=== PATIENT | female | born 1940 | race Caucasian/White ===

== ENCOUNTER 2020-12-12 08:45 | Emergency (ER) | payer MEDICARE ==
[~2020-12-12] VITALS: Ht 165.1 cm; Wt 77.1 kg
[~2020-12-12 08:45] MED LIST: AMLODIPINE BESY10 MG PO; ATORVASTATIN CA20 MG PO; Aspirin PO; DIOVAN160 MG PO; FENOFIBRATE145 MG PO; HYDROCHLOROTHIA25 MG PO; ISOSORBIDE MONO30 MG PO; LOPRESSOR25 MG PO; NITROSTAT0.3 MG SL
[2020-12-12 10:22] LABS: BACTERIA,URINE MODERATE /HPF; CLARITY,URINE HAZY (CLEAR); COLOR,URINE YELLOW (YELLOW); EPITHELIAL CELLS,URINE FEW /LPF; KETONES,URINE NEGATIVE (NEGATIVE); LEUKOCYTE ESTERASE ,URINE SMALL (NEGATIVE); NITRITE,URINE NEGATIVE (NEGATIVE); PROTEIN,URINE DIPSTICK >=300 (NEGATIVE); URINE UROBILINOGEN 0.2 mg/dL (0.2 - 1); WBC,URINE (MAN) >50 /HPF (0-5)
[2020-12-12 11:36] VITALS: BP 190/64
== END 2020-12-12 11:06 | disposition home or self-care (01) ==
LOC: ER 09:26
DX: R30.0 Dysuria (principal); N39.0 Urinary tract infection, site not specified; I10 Essential (primary) hypertension; E78.5 Hyperlipidemia, unspecified
CPT/HCPCS: 81001; 87086; 87186; 99283

== ENCOUNTER 2024-06-01 22:36 | Emergency (ER) | payer MEDICARE ==
[~2024-06-01] VITALS: Ht 165.1 cm; Wt 77.1 kg
[2024-06-01 23:04] VITALS: PULSE 61; RESP 18; TEMP 97.9
[2024-06-01 23:36] LABS: BASOPHILS # (AUTO) 0.1 (0.0-0.1); BASOPHILS % 0.8 % (0.0-1.0); EOSINOPHILS # (AUTO) 0.4 (0.0-0.4); HEMATOCRIT 40.3 % (34.2-44.1); HEMOGLOBIN 12.6 g/dL (12.0-16.0); LYMPHOCYTES # (AUTO) 2.1 (1.0-3.2); LYMPHOCYTES % 21.1 % (18.0-39.1); MEAN CORPUSCULAR HEMOGLOBIN 29.9 pg (28-32); MEAN CORPUSCULAR HGB CONC 31.3 g/dL (31-35); MEAN CORPUSCULAR VOLUME 95.5 fL (81-99); MONOCYTES # (AUTO) 0.9 (0.2-0.8); MONOCYTES % 8.9 % (4.4-11.3); NEUTROPHILS # (AUTO) 6.3 (2.1-6.9); NEUTROPHILS % 64.6 % (38.7-80.0); PLATELET COUNT 296 x10e3/uL (140-360); RED BLOOD COUNT 4.22 x10e6/uL (3.6-5.1); RED CELL DISTRIBUTION WIDTH 13.9 % (11.7-14.4)
[2024-06-01 23:56] LABS: ALANINE AMINOTRANSFERASE 15 IU/L (0-55); ALBUMIN 3.8 g/dL (3.5-5.0); ALBUMIN/GLOBULIN RATIO 1.2 (0.8-2.0); ALKALINE PHOSPHATASE 45 IU/L (40-150); ANION GAP 15.8 mmol/L (8-16); BILIRUBIN,TOTAL 0.3 mg/dL (0.2-1.2); BLOOD UREA NITROGEN 37 mg/dL (7-26); BUN/CREATININE RATIO 34 (6-25); CARBON DIOXIDE 19 mmol/L (22-29); CHLORIDE 105 mmol/L (98-107); CREATINE KINASE 63 IU/L (29-168); CREATININE, SERUM 1.09 mg/dL (0.57-1.11); EST GLOMERULAR FILTRATION RATE 50 ML/MIN (>=60); GLUCOSE 117 mg/dL (74-118); POTASSIUM 3.8 mmol/L (3.5-5.1); SODIUM 136 mmol/L (136-145)
[2024-06-02 00:04] LABS: TROPONIN I < 0.001 ng/mL (0-0.300)
[2024-06-02 00:13] LABS: INFLUENZAE A&B ANTIGEN (RAPID) NEGATIVE (NEGATIVE); RESPIRATORY SYNC. VIRUS NEGATIVE (NEGATIVE)
[2024-06-02] MEDS ORDERED: AZITHROMYCIN250 MG PO (00:39)
[2024-06-02] MEDS ORDERED: PREDNISONE20 MG PO (00:39)
[2024-06-02] MEDS ORDERED: VENTOLIN HFA18 GM INH (00:39)
[2024-06-02 00:49] VITALS: BP 147/59; PULSE 65; RESP 12; TEMP 97.7; O2SAT 97
== END 2024-06-02 00:55 | disposition home or self-care (01) ==
LOC: ER 22:40
DX: R06.02 Shortness of breath (principal); J06.9 Acute upper respiratory infection, unspecified; R05.9 Cough, unspecified; I10 Essential (primary) hypertension; E78.5 Hyperlipidemia, unspecified; Z11.52 Encounter for screening for COVID-19; R94.31 Abnormal electrocardiogram [ECG] [EKG]; Z87.19 Personal history of other diseases of the digestive system; Z95.5 Presence of coronary angioplasty implant and graft; M19.09 Primary osteoarthritis, other specified site
CPT/HCPCS: 0223U; 36415; 71045; 80053; 82550; 83690; 83880; 84484; 85025; 87400; 87420; 93005; 99284

== ENCOUNTER 2024-09-29 12:34 | Outpatient (RCR) | payer MEDICARE ==
[~2024-09-29 12:34] MED LIST changes: +AZITHROMYCIN250 MG PO; +PREDNISONE20 MG PO; +VENTOLIN HFA18 GM INH
== END 2024-10-03 ==
LOC: PT 12:34
PROVIDERS: ATTEND Physician Assistant
DX: M17.11 Unilateral primary osteoarthritis, right knee (principal); M25.552 Pain in left hip; M25.561 Pain in right knee; M25.661 Stiffness of right knee, not elsewhere classified; M62.81 Muscle weakness (generalized)

== ENCOUNTER 2024-10-27 13:52 | Outpatient (RCR) | payer MEDICARE | END 2024-10-31 | LOC: PT 13:52 | PROVIDERS: ATTEND Physician Assistant | DX: M17.11 Unilateral primary osteoarthritis, right knee (principal); M25.561 Pain in right knee; M25.661 Stiffness of right knee, not elsewhere classified; M25.552 Pain in left hip; M62.81 Muscle weakness (generalized) ==

== ENCOUNTER 2024-11-07 15:00 | Outpatient (RCR) | payer MEDICARE | END 2024-12-01 | LOC: PT 15:00 | PROVIDERS: ATTEND Physician Assistant | DX: M17.11 Unilateral primary osteoarthritis, right knee (principal) ==